=== PATIENT | female | born 1990 | race African-American/Black ===

== ENCOUNTER 2022-10-22 09:27 | Inpatient (IN) | payer BC ==
[2022-10-22] MEDS ORDERED: PROMETHAZINE HCL 25 MG/1 ML VIAL IM ONE (09:49)
[2022-10-22] MEDS ORDERED: BUTORPHANOL TARTRATE 1 MG/ML VIAL IVPB ONE (09:49)
[2022-10-22] MEDS ORDERED: OXYTOCIN 30 UNITS in 0.9% NS 30 UNIT/500 ML INFUS.BAG IVPB SCH (10:00)
[2022-10-22 10:17] VITALS: BMI 34.5
[2022-10-22] MEDS ORDERED: OXYTOCIN 30 UNITS in 0.9% NS 30 UNIT/500 ML INFUS.BAG IVPB ONE (10:31)
[2022-10-22] MEDS: ELECTROLYTE-148 SOLN 1,000 ML IV SCH ×3 (10:37→16:45)
[2022-10-22 11:13] LABS: BASO % 0.4 % (0-2.0); EOS % 0.8 % (0-4.5); HEMATOCRIT 35.5 % (32.4-45.2); HEMOGLOBIN 12.2 GM/dL (10.7-15.3); MCH 29.2 pg (25.7-33.7); MCHC 34.3 g/dl (32.0-36.0); MEAN CELL VOLUME 85.3 fl (80-96); MEAN PLT VOLUME 8.8 fl (7.5-11.1); MONO % 7.8 % (3.8-10.2); PLATELET COUNT 174 10^3/uL (134-434); RBC 4.16 M/mm3 (3.60-5.2); RDW 13.9 % (11.6-15.6); WHITE BLOOD COUNT 8.5 K/mm3 (4.0-10.0)
[2022-10-22 11:19] LABS: PROTHROMBIN TIME (PATIENT) 11.6 SEC (9.7-13.0)
[2022-10-22 11:21] LABS: ACTIVATED PTT 28.1 SECONDS (25.2-36.5)
[2022-10-22 11:31] LABS: POTASSIUM 3.8 mmol/L (3.5-5.1)
[2022-10-22 11:32] LABS: CALCIUM 8.5 mg/dL (8.5-10.1)
[2022-10-22 11:33] LABS: BLOOD UREA NITROGEN 4.3 mg/dL (7-18)
[2022-10-22 11:36] LABS: CREATININE 0.4 mg/dL (0.55-1.3)
[2022-10-22 12:02] LABS: SYPHILIS W/ RPR CONF NON-REACTIVE (NONREACTIVE)
[2022-10-22 12:30] LABS: HIV INTERPRETATION NEGATIVE (NEGATIVE)
[2022-10-22] MEDS ORDERED: FENTANYL/BUPIVACAINE/NS/PF - PCEA - 50 ML DISP.SYRIN EP ONE ×3 (13:51→23:32)
[2022-10-22] MEDS ORDERED: BUPIVACAINE HCL/PF 0.25% (2.5MG/ML) 10 ML VIAL ONE (14:26)
[2022-10-22] MEDS ORDERED: NALOXONE HCL 0.4 MG/ML VIAL IVPUSH PRN (15:37)
[2022-10-22] MEDS ORDERED: FENTANYL/BUPIVACAINE/NS/PF - PCEA - 50 ML DISP.SYRIN EP SCH (15:45)
[2022-10-23] MEDS ORDERED: OXYTOCIN 20 UNITS in 0.9% NS 20 UNIT/1,000 ML INFUS.BAG IV ONE (00:08)
[2022-10-23] MEDS ORDERED: METHYLERGONOVINE MALEATE 0.2 MG/1 ML AMP IM PRN (00:34)
[2022-10-23] MEDS ORDERED: BENZOCAINE 28 GM HEMORRHOIDAL OINTMENT TP PRN (00:34)
[2022-10-23] MEDS ORDERED: BISACODYL 10 MG SUPP.RECT RC PRN (00:34)
[2022-10-23] MEDS ORDERED: BENZOCAINE 20% 57 GM BOTTLE TP PRN (00:34)
[2022-10-23] MEDS ORDERED: oxyCODONE HCL 5 MG TABLET PO PRN (00:34)
[2022-10-23] MEDS ORDERED: WITCH HAZEL 50% (TUCKS) 40 PAD/JAR PAD TP PRN (00:34)
[2022-10-23] MEDS ORDERED: OXYTOCIN 20 UNITS in 0.9% NS 20 UNIT/1,000 ML INFUS.BAG IV SCH (00:45)
[2022-10-23 02:55] VITALS: RESP 18
[2022-10-23] MEDS: IBUPROFEN 600 MG TABLET (FP) PO PRN ×3 (04:40→20:44)
[2022-10-23] MEDS: ACETAMINOPHEN 325 MG TABLET (FP) PO PRN ×2 (07:52→17:11)
[2022-10-23] MEDS: FERROUS SO4 325 MG TABLET (FP) PO SCH (09:25)
[2022-10-23] MEDS: PRENATAL VITAMINS W/ FOLIC ACID TABLET (FP) PO SCH (09:25)
[2022-10-24 08:55] LABS: BASO % 0.4 % (0-2.0); EOS % 1.9 % (0-4.5); HEMATOCRIT 36.3 % (32.4-45.2); HEMOGLOBIN 11.9 GM/dL (10.7-15.3); LYMPH % 20.6 % (8-40); MCH 28.8 pg (25.7-33.7); MCHC 32.8 g/dl (32.0-36.0); MEAN CELL VOLUME 87.7 fl (80-96); MEAN PLT VOLUME 8.7 fl (7.5-11.1); MONO % 7.5 % (3.8-10.2); NEUT % 69.6 % (42.8-82.8); PLATELET COUNT 186 10^3/uL (134-434); RBC 4.14 M/mm3 (3.60-5.2); RDW 14.3 % (11.6-15.6); WHITE BLOOD COUNT 10.2 K/mm3 (4.0-10.0)
[2022-10-24] MEDS: ACETAMINOPHEN 325 MG TABLET (FP) PO PRN (10:28)
[2022-10-24] MEDS: FERROUS SO4 325 MG TABLET (FP) PO SCH (10:29)
[2022-10-24] MEDS: PRENATAL VITAMINS W/ FOLIC ACID TABLET (FP) PO SCH (10:29)
[2022-10-24 12:27] VITALS: BP 109/82; PULSE 102; TEMP 98.6
[2022-10-24] MEDS ORDERED: SENNOSIDES/DOCUSATE COMBO (SENNA PLUS) TABLET (UD) PO PRN (22:00)
== END 2022-10-24 13:05 | disposition home or self-care (01) | DRG 807 ==
LOC: JLDR 09:27 → J3W 10-23 02:30
PROVIDERS: ADMIT Obstetrics & Gynecology; ATTEND Obstetrics & Gynecology
PROC: 3E033VJ Introduction of Other Hormone into Peripheral Vein, Percutaneous Approach (ICD-10-PCS; 2022-10-22)
PROC: 10907ZC Drainage of Amniotic Fluid, Therapeutic from Products of Conception, Via Natural or Artificial Opening (ICD-10-PCS; 2022-10-22)
PROC: 10E0XZZ Delivery of Products of Conception, External Approach (ICD-10-PCS; principal; 2022-10-23)
DX: O80 Encounter for full-term uncomplicated delivery (principal); Z37.0 Single live birth; Z3A.39 39 weeks gestation of pregnancy
CPT/HCPCS: 36415; 80048; 85025; 85610; 85730; 86780; 86850; 86900; 86901; 87389